=== PATIENT | male | born 1995 | race Two or more races ===

== ENCOUNTER → 2019-07-19 | Emergency (ER) | payer BC, OTHER ==
[~2019-07-19] VITALS: Ht 177.8 cm; Wt 117.9 kg
[~2019-07-19] MED LIST: HYDROcodone-ACET 5/325MG TAB PO ONE; LIDOCAINE W/ EPINEPHRINE 2% INJ 20ML VIAL IJ ONE; SODIUM CHLORIDE 0.9% 1,000 ML IV ONE; cefTRIAXone 1GM/50ML D5W 50 ML IV ONE
[2019-07-19 19:25] VITALS: BP 133/82
== END | disposition home or self-care (01) ==
LOC: ER 18:01
DX: J36 Peritonsillar abscess (principal); H92.02 Otalgia, left ear
CPT/HCPCS: 42700; 96365; 99284; J0696; J7030

== ENCOUNTER 2019-07-28 14:56 | Emergency (ER) | payer BC ==
[~2019-07-28] VITALS: Ht 177.8 cm; Wt 108.9 kg
[2019-07-28] MEDS ORDERED: ACETAMINOPHEN 325 MG TAB PO ONE (15:45)
[2019-07-28 16:22] LABS: Basophils # (auto) 0.1 10 ^3/uL (0-0.2); Basophils % (auto) 0.7 % (0.0-2.0); Eosinophils # (auto) 0 10 ^3/uL (0-0.8); Eosinophils % (auto) 0.3 % (0.0-7.0); Hematocrit 47.2 % (41.0-53.0); Hemoglobin 15.6 g/dL (13.5-17.5); Lymphocytes # (auto) 3.7 10 ^3/uL (0.4-5.4); Lymphocytes % (auto) 28.1 % (10.0-50.0); Mean Corpuscular Hemoglobin 28.5 pg (28.0-32.0); Mean Corpuscular Volume 86.3 fL (80.0-100.0); Monocytes # (auto) 1.3 10 ^3/uL (0-1.3); Monocytes % (auto) 9.8 % (0.0-12.0); Neutrophils % (auto) 61.1 % (37.0-80.0); Nucleated Red Blood Cells % 0.1 %; Platelet Count (auto) 450 10^3/uL (140-450); Red Blood Cells 5.47 10^6/uL (4.5-5.90); Red Cell Distribution Width 13.3 % (11.8-14.3); White Blood Cell 13.2 10^3/uL (4.4-10.8)
[2019-07-28 16:40] LABS: Albumin 4.3 g/dL (3.4-5.0); Calcium 9.4 mg/dL (8.5-10.1)
[2019-07-28 16:45] LABS: BUN/Creatinine Ratio 19.5; Bilirubin, Total 0.6 mg/dL (0.2-1.0); Total Protein 9.1 g/dL (6.4-8.2)
[2019-07-28] MEDS ORDERED: cefTRIAXone 1GM/50ML D5W 50 ML IV ONE (17:30)
[2019-07-28] MEDS ORDERED: SODIUM CHLORIDE 0.9% 1,000 ML IV ONE (17:30)
[2019-07-28 20:30] VITALS: BP 143/80
== END 2019-07-28 20:30 | disposition home or self-care (01) ==
LOC: ER 14:56
DX: Z03.818 Encounter for observation for suspected exposure to other biological agents ruled out (principal); J02.9 Acute pharyngitis, unspecified
CPT/HCPCS: 36415; 71045; 80053; 82728; 83605; 85025; 87635; 87804; 87880; 96365; 96366; 99001; 99284; J0696; J7030